=== PATIENT | male | born 1975 | race Caucasian/White ===

== ENCOUNTER 2017-04-09 09:46 | Emergency (ER) | payer OTHER, MEDICAID ==
[~2017-04-09] VITALS: Ht 167.6 cm; Wt 104.3 kg
[2017-04-09 10:00] VITALS: BP 131/79
--- NOTE | 2017-04-09 10:09 | NUR ---
patient to bed #8
--- NOTE | 2017-04-09 10:13 | NUR ---
PT PRESENTS TO ER FOR EVALUATION OF RIGHT GREAT TOE INGROWN TOENAIL.NO SWELLING /REDNESS NOTED ON THE RT GREAT TOE; PT DENIES ANY MEDICAL HX. DENIES N/V/D; SKIN IS PINK/WARM/DRY; AAOX4 WITH EVEN AND STEADY GAIT; LUNGS CLEAR BL; HR EVEN AND REGULAR; PT DENIES ANY FEVER, CP, SOB, OR COUGH AT THIS TIME; PATIENT STATES PAIN OF 0/10 AT THIS TIME;PATIENT POSITIONED FOR COMFORT; HOB ELEVATED; BEDRAILS UP X2; BED DOWN. ER MD WILL BE NOTIFIED.
--- NOTE | 2017-04-09 11:33 | NUR ---
Dr. Breaux evaluating patient at bedside.
[2017-04-09 11:52] VITALS: BP 120/77
--- NOTE | 2017-04-09 11:52 | NUR ---
Patient discharged with v/s stable. Written and verbal after care instructions given and explained. Patient verbalized understanding. Ambulatory with steady gait. All questions addressed prior to discharge. Advised to follow up with PMD.
== END 2017-04-09 11:52 | disposition home or self-care (01) ==
LOC: MED 09:46
DX: L60.0 Ingrowing nail (principal)
CPT/HCPCS: 99283

== ENCOUNTER 2017-10-28 23:15 | Emergency (ER) | payer OTHER ==
[~2017-10-28] VITALS: Ht 167.6 cm; Wt 96.6 kg
[2017-10-28 23:29] VITALS: BP 161/78
--- NOTE | 2017-10-28 23:35 | NUR ---
PT TAKEN TO [facility] FROM [facility]
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
--- NOTE | 2017-10-29 | NUR ---
Paulina adam in [facility] - 10/29/17 at 0000 by MAE PT TAKEN TO BED 2
[2017-10-29 00:12] VITALS: BP 131/84
== END 2017-10-29 00:12 | disposition home or self-care (01) ==
LOC: MED 23:15
DX: M25.511 Pain in right shoulder (principal); R03.0 Elevated blood-pressure reading, without diagnosis of hypertension; W18.30XA Fall on same level, unspecified, initial encounter; Y93.51 Activity, roller skating (inline) and skateboarding; Y92.89 Other specified places as the place of occurrence of the external cause; Y99.8 Other external cause status
CPT/HCPCS: 73030; 99284

== ENCOUNTER 2017-11-13 01:45 | Emergency (ER) | payer OTHER ==
[~2017-11-13] VITALS: Ht 160 cm; Wt 98.5 kg
--- NOTE | 2017-11-13 01:55 | NUR ---
PT TAKEN TO BED 11
[2017-11-13 02:02] VITALS: BP 135/86
--- NOTE | 2017-11-13 02:05 | NUR ---
Dr. Negro evaluating patient.
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
[2017-11-13] MEDS ORDERED: IBUPROFEN 800 MG TAB PO ONE (02:15)
[2017-11-13 02:31] VITALS: BP 119/74
--- NOTE | 2017-11-13 02:32 | NUR ---
Patient discharged with v/s stable. Written and verbal after care instructions given and explained. Patient alert, oriented and verbalized understanding of instructions. Ambulatory. All questions addressed prior to discharge. ID band removed. Patient advised to follow up with PMD. Rx of MOTRIN 800 MG TAB 1 TAB 3 TIMES A DAY given. Patient educated on indication of medication including possible reaction and side effects. Opportunity to ask questions provided and answered.
== END 2017-11-13 02:32 | disposition home or self-care (01) ==
LOC: MED 01:45
DX: S16.1XXA Strain of muscle, fascia and tendon at neck level, initial encounter (principal); S86.911A Strain of unspecified muscle(s) and tendon(s) at lower leg level, right leg, initial encounter; S50.812A Abrasion of left forearm, initial encounter; S80.211A Abrasion, right knee, initial encounter; R03.0 Elevated blood-pressure reading, without diagnosis of hypertension; X58.XXXA Exposure to other specified factors, initial encounter; Y93.89 Activity, other specified; Y92.89 Other specified places as the place of occurrence of the external cause; Y99.8 Other external cause status
CPT/HCPCS: 99282

== ENCOUNTER 2018-02-26 14:56 | Emergency (ER) | payer MEDICAID, OTHER ==
[~2018-02-26] VITALS: Ht 167.6 cm; Wt 98.4 kg
[2018-02-26 15:23] VITALS: BP 132/81
--- NOTE | 2018-02-26 15:31 | NUR ---
PT AMBULATES TO CHAIR E, REPORT GIVEN TO IRAIS HASSAN
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
[2018-02-26 16:45] VITALS: BP 131/82
== END 2018-02-26 16:47 | disposition home or self-care (01) ==
LOC: MED 14:56
DX: R51 Headache (principal); Z00.00 Encounter for general adult medical examination without abnormal findings
CPT/HCPCS: 99281

== ENCOUNTER 2018-05-06 15:04 | Emergency (ER) | payer MEDICAID ==
[~2018-05-06] VITALS: Ht 165.1 cm; Wt 98.4 kg
[2018-05-06 15:20] VITALS: BP 145/95
--- NOTE | 2018-05-06 15:30 | NUR ---
42Y/M BIB SELF C/O MOUTH PAIN. PT STATES" HE HAS MOUTH PAIN, S/P TOOTH EXTRATIONS 1ST 2 FRONT UPPER TEETH X TODAY; PT WAS INSTRUCTED TO COME TO ER IF NEED OF STRONGER ANALGESIC THAN MOTRIN 800MG. PT DENIES N/V/D; SKIN IS PINK/WARM/DRY; AAOX4 WITH EVEN AND STEADY GAIT; LUNGS CLEAR BL; HR EVEN AND REGULAR; PT DENIES ANY FEVER, CP, SOB, OR COUGH AT THIS TIME; PATIENT STATES PAIN OF 10/10 AT THIS TIME; VSS; PATIENT POSITIONED FOR COMFORT; HOB ELEVATED; BEDRAILS UP X1; BED DOWN. ER MD MADE AWARE OF PT STATUS. HX---DENIES RX---NONE
[2018-05-06 16:27] VITALS: BP 142/94
== END 2018-05-06 16:26 | disposition home or self-care (01) ==
LOC: MED 15:04
DX: K08.89 Other specified disorders of teeth and supporting structures (principal)
CPT/HCPCS: 99283

== ENCOUNTER 2019-08-12 08:07 | Emergency (ER) | payer SELFPAY ==
[~2019-08-12] VITALS: Ht 167.6 cm; Wt 95.3 kg
[2019-08-12 08:21] VITALS: BP 120/79
[2019-08-12 09:08] LABS: BASOPHILS # (AUTO) 0.1 K/uL (0.00-0.22); BASOPHILS % (AUTO) 0.9 % (0.0-2.0); EOSINOPHILS # (AUTO) 0.2 K/uL (0-0.4); EOSINOPHILS % (AUTO) 4.3 % (0.0-4.0); HEMATOCRIT 46.8 % (36-52); HEMOGLOBIN 15.5 g/dL (12.0-18.0); LYMPHOCYTES # (AUTO) 2.3 K/uL (2.0-11.5); LYMPHOCYTES % (AUTO) 39.6 % (20.5-51.1); MEAN CORPUSCULAR HEMOGLOBIN 29 pg (27-31); MEAN CORPUSCULAR HGB CONC 33 g/dL (33-37); MEAN CORPUSCULAR VOLUME 88.9 fL (80-94); MONOCYTES # (AUTO) 0.3 K/uL (0.8-1.0); MONOCYTES % (AUTO) 4.4 % (1.7-9.3); NEUTROPHILS % (AUTO) 50.8 % (42.2-75.2); PLATELET COUNT (AUTO) 205 K/uL (140-450); RED BLOOD CELL COUNT(AUTO) 5.26 MIL/uL (4.20-6.10); RED CELL DISTRIBUTION WIDTH 12.5 % (11.6-13.7); WHITE BLOOD COUNT (AUTO) 5.8 K/uL (4.8-10.8)
[2019-08-12 09:15] LABS: ALBUMIN 3.8 g/dL (3.4-5.0); CREATININE 1.1 mg/dL (0.7-1.3); TOTAL BILIRUBIN 0.3 mg/dL (0.0-1.0)
[2019-08-12] MEDS ORDERED: ASPIRIN 81 MG TAB.CHEW PO ONE (09:20)
[2019-08-12 11:06] VITALS: BP 124/81
== END 2019-08-12 11:07 | disposition home or self-care (01) ==
LOC: MED 08:07
DX: R07.89 Other chest pain (principal); R05 Cough; F10.10 Alcohol abuse, uncomplicated; F12.90 Cannabis use, unspecified, uncomplicated
CPT/HCPCS: 36415; 71045; 80053; 84484; 85025; 93005; 99284; Q0092

== ENCOUNTER 2021-08-23 11:28 | Emergency (ER) | payer MEDICAID ==
[~2021-08-23] VITALS: Ht 165.1 cm; Wt 105.2 kg
[2021-08-23 11:37] VITALS: BP 132/99
--- NOTE | 2021-08-23 11:57 | NUR ---
PT AMB TO ER BED 7, 45yo m c/o 01/30 left ear pain x 2 days. denies trauma to area. denies swimming recently. denies hearing loss, dizziness. also reports left-sided abdominal bloating x 1 day. lbm: this morning. no meds taken.
[2021-08-23] MEDS ORDERED: AMOX-999 PO (12:25)
[2021-08-23] MEDS ORDERED: OFLO10SO16 LEFT EAR (12:25)
[2021-08-23] MEDS ORDERED: BEN10 PO (12:25)
--- NOTE | 2021-08-23 12:39 | NUR ---
Patient discharged with v/s stable. Written and verbal after care instructions given and explained. Patient alert, oriented and verbalized understanding of instructions. Ambulatory with steady gait. All questions addressed prior to discharge. ID band removed. Patient advised to follow up with PMD. Rx of AMOXICILIN/POTASSIUM GANESH, DICYCLOMINE, OFLOXACIN given. Opportunity to ask questions provided and answered.
== END 2021-08-23 12:39 | disposition home or self-care (01) ==
LOC: MED 11:28
DX: H92.02 Otalgia, left ear (principal); K58.9 Irritable bowel syndrome, unspecified
CPT/HCPCS: 99283

== ENCOUNTER 2021-09-17 14:33 | Emergency (ER) | payer MEDICAID ==
[~2021-09-17] VITALS: Ht 167.6 cm; Wt 104.3 kg
[~2021-09-17 14:33] MED LIST: AMOX-999 PO; BEN10 PO; OFLO10SO16 LEFT EAR
[2021-09-17 14:39] VITALS: BP 140/83
--- NOTE | 2021-09-17 15:08 | NUR ---
Patient being evaluated by CARMELO CASANOVA at TRIAGE ROOM.
[2021-09-17] MEDS ORDERED: HYD1C TP (15:12)
[2021-09-17] MEDS ORDERED: CEPH-588 PO (15:12)
[2021-09-17] MEDS ORDERED: PRED20TA5 PO (15:12)
[2021-09-17 15:24] VITALS: BP 135/84
--- NOTE | 2021-09-17 15:31 | NUR ---
Patient discharged with v/s stable. Written and verbal after care instructions given FOR CELLULITIS AND INSECT BITE and explained. Patient alert, oriented and verbalized understanding of instructions. Ambulatory with steady gait. All questions addressed prior to discharge. ID band removed. Patient advised to follow up with PMD. Rx of KEFLEX, HYDROCORTISONE, AND PREDNISONE given. Patient educated on indication of medication including possible reaction and side effects. Opportunity to ask questions provided and answered.
== END 2021-09-17 15:24 | disposition home or self-care (01) ==
LOC: MED 14:33
DX: S40.862A Insect bite (nonvenomous) of left upper arm, initial encounter (principal); L03.114 Cellulitis of left upper limb; Z79.899 Other long term (current) drug therapy; W57.XXXA Bitten or stung by nonvenomous insect and other nonvenomous arthropods, initial encounter; Y93.89 Activity, other specified; Y92.89 Other specified places as the place of occurrence of the external cause; Y99.8 Other external cause status
CPT/HCPCS: 99283

== ENCOUNTER 2021-11-23 18:18 | Emergency (ER) | payer SELFPAY ==
[~2021-11-23] VITALS: Ht 167.6 cm; Wt 107.0 kg
[~2021-11-23 18:18] MED LIST changes: +CEPH-588 PO; +HYD1C TP; +PRED20TA5 PO
[2021-11-23 18:22] VITALS: BP 157/101
--- NOTE | 2021-11-23 18:30 | NUR ---
46 y/o male, pt states he twisted his left hand 2nd digit finger at work last week and has been having pain since. Finger swollen at this time, but pt is still able to move his finger around. Cap refill <2 seconds. No redness, lac or abrasion at site of injury. pmh: denies nka med: denies
--- NOTE | 2021-11-23 19:07 | NUR ---
Note undone in EDM - 11/23/21 at 1910 by [email or web address] Patient discharged with v/s stable. Written and verbal after care instructions given and explained. Patient alert, oriented and verbalized understanding of instructions. Ambulatory with steady gait. All questions addressed prior to discharge. ID band removed. Patient advised to follow up with PMD. Rx of IBPUROFEN given. Patient educated on indication of medication including possible reaction and side effects. Opportunity to ask questions provided and answered.
--- NOTE | 2021-11-23 19:20 | NUR ---
Pt report given to IRAIS RABAGO. Transfer of care at this time.
--- NOTE | 2021-11-23 19:27 | NUR ---
Dr. Murillo at bedside to exam patient.
[2021-11-23 19:34] VITALS: BP 157/101
== END 2021-11-23 23:26 | disposition home or self-care (01) ==
LOC: MED 18:18
DX: M79.645 Pain in left finger(s) (principal); Z79.899 Other long term (current) drug therapy; X58.XXXA Exposure to other specified factors, initial encounter; Y93.89 Activity, other specified; Y92.89 Other specified places as the place of occurrence of the external cause; Y99.0 Civilian activity done for income or pay
CPT/HCPCS: 99281

== ENCOUNTER 2022-03-20 10:35 | Emergency (ER) | payer SELFPAY ==
[~2022-03-20] VITALS: Ht 167.6 cm; Wt 102.5 kg
[2022-03-20 10:52] VITALS: BP 121/69
--- NOTE | 2022-03-20 11:16 | NUR ---
PT AMBULATED TO BED 12
--- NOTE | 2022-03-20 12:00 | NUR ---
46 Y/O MALE C/O OF LOW BACK PAIN 11/02. STATES HE'S HERE FOR MEDICAL CLEARANCE NANCY PMH: DENIES
[2022-03-20 12:26] VITALS: BP 121/74
--- NOTE | 2022-03-20 12:28 | NUR ---
Patient discharged with v/s stable. Written and verbal after care instructions given and explained. Patient verbalized understanding. Ambulatory with steady gait. All questions addressed prior to discharge. Advised to follow up with PMD. NO NURSING INTERVENTIONS DONE
== END 2022-03-20 12:28 | disposition home or self-care (01) ==
LOC: MED 10:35
DX: M54.50 Low back pain, unspecified (principal); Z79.899 Other long term (current) drug therapy
CPT/HCPCS: 99281

== ENCOUNTER 2022-07-05 09:02 | Emergency (ER) | payer SELFPAY ==
[~2022-07-05] VITALS: Ht 165.1 cm; Wt 100.5 kg
[2022-07-05 09:11] VITALS: BP 115/84
[2022-07-05] MEDS ORDERED: TETRACAINE HCL/PF 0.5% OPTH 4 ML BTL OP ONE (09:45)
[2022-07-05] MEDS ORDERED: FLUORESCEIN OPTH STRIP 1 MG OP ONE (09:45)
[2022-07-05] MEDS ORDERED: FLUORESCEIN OPTH STRIP 1 MG ONE (09:49)
--- NOTE | 2022-07-05 09:52 | NUR ---
Dr. Rojas evaluating patient at bedside.
[2022-07-05] MEDS ORDERED: TOMOMETER 1 DEV DEV MC ONE (09:55)
[2022-07-05 10:20] VITALS: BP 126/75
--- NOTE | 2022-07-05 10:20 | NUR ---
Patient discharged with v/s stable. Written and verbal after care instructions given. Patient verbalized understanding. Ambulatory with steady gait. All questions addressed prior to discharge. Advised to follow up with PMD.
== END 2022-07-05 10:20 | disposition home or self-care (01) ==
LOC: MED 09:02
DX: H00.013 Hordeolum externum right eye, unspecified eyelid (principal)
CPT/HCPCS: 99283

== ENCOUNTER 2022-11-19 11:11 | Emergency (ER) | payer SELFPAY ==
[~2022-11-19] VITALS: Ht 167.6 cm; Wt 108.0 kg
[2022-11-19 11:18] VITALS: BP 140/82
--- NOTE | 2022-11-19 11:22 | NUR ---
AMBULATED TO BED 12
--- NOTE | 2022-11-19 11:31 | NUR ---
ASSUMED PATIENT CARE, NURSING ASSESSMENT.
[2022-11-19 14:02] VITALS: BP 135/80
--- NOTE | 2022-11-19 14:02 | NUR ---
DISPO AND MEDICAL DECISION MAKING, DC HOME WITH AFTERCARE INSTRUCTIONS RE: ESOPHAGEAL ABRASION, UNDERSTOOD BY PATIENT WELL, VS WNL.
== END 2022-11-19 14:02 | disposition home or self-care (01) ==
LOC: MED 11:11
DX: S27.818A Other injury of esophagus (thoracic part), initial encounter (principal); Z79.899 Other long term (current) drug therapy; X58.XXXA Exposure to other specified factors, initial encounter; Y93.89 Activity, other specified; Y92.89 Other specified places as the place of occurrence of the external cause; Y99.8 Other external cause status
CPT/HCPCS: 70360; 99283

== ENCOUNTER 2024-04-17 10:03 | Emergency (ER) | payer BC ==
[~2024-04-17] VITALS: Ht 167.6 cm; Wt 96.2 kg
[2024-04-17 10:12] VITALS: BP 139/96; PULSE 66; RESP 16; TEMP 97.7; O2SAT 100
[2024-04-17 10:53] LABS: APPEARANCE,URINE CLEAR (CLEAR); BILIRUBIN,URINE NEGATIVE (NEGATIVE); BLOOD, URINE TRACE-I (NEGATIVE); COLOR,URINE YELLOW (YELLOW); LEUKOCYTE ESTERASE ,URINE NEGATIVE (NEGATIVE); NITRITE, URINE NEGATIVE (NEGATIVE); PROTEIN,URINE NEGATIVE (NEGATIVE); UGLUCOSE NEGATIVE (NEGATIVE); UROBILINOGEN,URINE 0.2 EU/dL (0.2 - 1)
[2024-04-17 10:57] LABS: BACTERIA,URINE OCCASSIONAL /HPF (None Seen); RBC,URINE 0-5 /HPF (0-5); SQUAMOUS EPITHELIAL CELL,UR 0-3 (FEW) /LPF (0-3 (FEW)); WBC,URINE 0-5 /HPF (0-5)
[2024-04-17 11:46] VITALS: BP 139/96; PULSE 66; RESP 16; TEMP 97.7; O2SAT 100
== END 2024-04-17 11:46 | disposition home or self-care (01) ==
LOC: MED 10:03
DX: R31.9 Hematuria, unspecified (principal); Z79.2 Long term (current) use of antibiotics; Z79.899 Other long term (current) drug therapy
CPT/HCPCS: 81001; 99283